=== PATIENT | male | born 1945 | race American Indian/Alaskan Native ===

== ENCOUNTER 2017-08-27 13:58 | Inpatient (IN) | payer MEDICARE ==
[2017-08-27 14:36] LABS: Basophils % (Auto) 0.7 % (0.0-1.8); Hematocrit 36.2 % (35.5-45.6); Mean Corpuscular HGB Conc 33 % (32-34); Mean Corpuscular Hemoglobin 30 pg (28-32); Mean Corpuscular Volume 90 fl (84-94); Platelet Count 279 K/mm3 (140-440); Red Blood Count 4.03 M/mm3 (3.65-5.03); Red Cell Distribution Width 14.3 % (13.2-15.2); White Blood Count 7.2 K/mm3 (4.5-11.0)
[2017-08-27 14:54] LABS: Alanine Aminotransferase 14 units/L (7-56); Albumin 3.9 g/dL (3.9-5); Albumin/Globulin Ratio 1.3 %; Alkaline Phosphatase 80 units/L (35-129); Anion Gap 17 mmol/L; BUN/Creatinine Ratio 12; Blood Urea Nitrogen 11 mg/dL (9-20); Calcium 9.2 mg/dL (8.4-10.2); Carbon Dioxide 28 mmol/L (22-30); Chloride 99.9 mmol/L (98-107); Glucose 115 mg/dL (75-100); Potassium 4.5 mmol/L (3.6-5.0); Sodium 140 mmol/L (137-145)
--- NOTE | 2017-08-27 15:27 | Emergency Department Report ---
ED General Adult HPI - General Chief complaint: Nausea/Vomiting/Diarrhea Stated complaint: N/V,DIAPHORETIC Time Seen by Provider: 08/27/17 15:18 Source: patient, EMS (ems notes not available at time of chart dictation), RN notes reviewed, old records reviewed Mode of arrival: Stretcher Limitations: No Limitations - History of Present Illness Initial comments: This is a 72-year-old male who was previously unknown to me, past medical history includes gastric cancer, hypertension, his women specialist is Dr Klein Patient brought to the hospital by EMS for near syncope and diaphoresis. This lasted for a few seconds. It has since resolved. Patient indicates no headache , neck pain, chest pain, abdominal pain, shortness of breath at this time. Patient indicates his outpatient women specialist is planning to do either a catheterization or repeat stress test, because of "blockages." No recent stress test. Patient endorses compliance with his medications. His symptoms do not radiate anywhere, they're now resolved, and they have no exacerbating or relieving factors. -: Sudden Severity scale (0 -10): 0 Consistency: now resolved Improves with: none Worsens with: none Associated Symptoms: diaphoresis, malaise, syncope, weakness. denies: confusion , chest pain, cough, fever/chills, headaches, loss of appetite, rash, seizure - Related Data Home Medications Medication Instructions Recorded Confirmed Last Taken Aspirin [Lo-Dose Aspirin EC] 81 mg PO DAILY 07/12/17 07/14/17 07/13/17 AtorvaSTATin [Lipitor] 10 mg PO QHS 07/12/17 07/14/17 07/13/17 Cholecalciferol (Vitamin D3) 50,000 unit PO QWEEK 07/12/17 07/14/17 07/13/17 [Vitamin D3] Lisinopril [Zestril] 20 mg PO DAILY 07/12/17 07/14/17 07/14/17 07:30 Metoprolol [Lopressor TAB] 50 mg PO BID 07/12/17 07/14/17 07/14/17 07:30 Allergies Allergy/AdvReac Type Severity Reaction Status Date / Time No Known Allergies Allergy Verified 07/12/17 14:18 ED Review of Systems ROS: Stated complaint: N/V,DIAPHORETIC Other details as noted in HPI ED Past Medical Hx - Past Medical History Hx Hypertension: Yes (X 5 YRS, took metoprolol) Hx GERD: Yes Hx Liver Disease: No Hx Renal Disease: No Hx Seizures: Yes (due to heat. 3-4 yrs ago) Hx Asthma: No Hx COPD: No Hx HIV: No - Surgical History Past Surgical History?: No - Social History Smoking Status: Former Smoker Substance Use Type: Alcohol, Marijuana - Medications Home Medications: Home Medications Medication Instructions Recorded Confirmed Last Taken Type Aspirin [Lo-Dose Aspirin EC] 81 mg PO DAILY 07/12/17 07/14/17 07/13/17 History AtorvaSTATin [Lipitor] 10 mg PO QHS 07/12/17 07/14/17 07/13/17 History Cholecalciferol (Vitamin D3) 50,000 unit PO QWEEK 07/12/17 07/14/17 07/13/17 History [Vitamin D3] Lisinopril [Zestril] 20 mg PO DAILY 07/12/17 07/14/17 07/14/17 07:30 History Metoprolol [Lopressor TAB] 50 mg PO BID 07/12/17 07/14/17 07/14/17 07:30 History ED Physical Exam - General Limitations: No Limitations General appearance: alert, in no apparent distress - Head Head exam: Present: atraumatic, normocephalic - Eye Eye exam: Present: normal appearance, EOMI. Absent: nystagmus - ENT ENT exam: Present: normal exam, normal orophraynx, mucous membranes moist, normal external ear exam - Neck Neck exam: Present: normal inspection, full ROM - Respiratory Respiratory exam: Present: normal lung sounds bilaterally. Absent: respiratory distress - Cardiovascular Cardiovascular Exam: Present: regular rate, normal rhythm, normal heart sounds. Absent: systolic murmur, diastolic murmur, rubs, gallop - GI/Abdominal GI/Abdominal exam: Present: soft, normal bowel sounds. Absent: distended, tenderness, guarding, rebound, rigid, pulsatile mass, hernia - Rectal Rectal exam: Present: deferred - Extremities Exam Extremities exam: Present: normal inspection, full ROM, normal capillary refill. Absent: tenderness, pedal edema, joint swelling, calf tenderness - Back Exam Back exam: Present: normal inspection, full ROM. Absent: tenderness, CVA tenderness (R), paraspinal tenderness, vertebral tenderness - Neurological Exam Neurological exam: Present: alert, oriented X3, CN II-XII intact, normal gait, other (Extraocular movements intact. Tongue midline. No facial droop. Facial sensation intact to light touch in the V1, V2, V3 distribution bilaterally. 5 and 5 strength in 4 extremities.. Sensation is intact to light touch in 4 extremities.). Absent: motor sensory deficit - Psychiatric Psychiatric exam: Present: normal affect, normal mood - Skin Skin exam: Present: warm, dry, intact, normal color. Absent: rash ED Course Vital Signs 08/27/17 08/27/17 08/27/17 14:05 14:10 14:15 Temperature 97.5 F L Pulse Rate 68 64 Respiratory 16 15 Rate Blood Pressure 108/60 114/64 101/68 Blood Pressure 114/64 [Right] O2 Sat by Pulse 100 99 Oximetry 08/27/17 08/27/17 08/27/17 14:30 14:38 14:45 Temperature 97.9 F Pulse Rate 66 71 73 Respiratory 14 12 17 Rate Blood Pressure 101/68 109/70 Blood Pressure 110/64 [Right] O2 Sat by Pulse 98 99 99 Oximetry 08/27/17 08/27/17 15:01 15:15 Temperature Pulse Rate 68 62 Respiratory 16 15 Rate Blood Pressure 100/55 100/55 Blood Pressure [Right] O2 Sat by Pulse 99 100 Oximetry - Reevaluation(s) Reevaluation #1: 08/27/17 18:51 Differential diagnosis, including but not limited to: Acute coronary syndrome, pulmonary embolus, structural cardiac disease, vagal event, orthostasis Assessment and plan: 72-year-old male, reported history of possible obstructive coronary artery disease, indicates his private women specialist is planning risk stratification and near future, low risk by well's criteria, negative CT scan of the chest for pulmonary and was, negative troponin, with episode of diaphoresis and near syncope. His symptoms have resolved, he is afebrile with reassuring vital signs, he has an unremarkable physical exam, and an unremarkable neurologic examination. Discussed with covering cardiology talent acquisition administrator , Dr. Narayanan, who recommended admission for observation and acute coronary syndrome risk stratification; case presented to Hospital physician, Dr. Coleman; he accepts the patient to the medical service. ED Medical Decision Making - Lab Data Result diagrams: 08/27/17 14:20 08/27/17 14:20 Vital Signs 08/27/17 08/27/17 08/27/17 14:05 14:10 14:15 Temperature 97.5 F L Pulse Rate 68 64 Respiratory 16 15 Rate Blood Pressure 108/60 114/64 101/68 Blood Pressure 114/64 [Right] O2 Sat by Pulse 100 99 Oximetry 08/27/17 08/27/17 08/27/17 14:30 14:38 14:45 Temperature 97.9 F Pulse Rate 66 71 73 Respiratory 14 12 17 Rate Blood Pressure 101/68 109/70 Blood Pressure 110/64 [Right] O2 Sat by Pulse 98 99 99 Oximetry 08/27/17 08/27/17 15:01 15:15 Temperature Pulse Rate 68 62 Respiratory 16 15 Rate Blood Pressure 100/55 100/55 Blood Pressure [Right] O2 Sat by Pulse 99 100 Oximetry Lab Results 08/27/17 08/27/17 08/27/17 Range/Units 14:20 14:20 15:26 WBC 7.2 (4.5-11.0) K/mm3 RBC 4.03 (3.65-5.03) M/mm3 Hgb 12.0 (11.8-15.2) gm/dl Hct 36.2 (35.5-45.6) % MCV 90 (84-94) fl MCH 30 (28-32) pg MCHC 33 (32-34) % RDW 14.3 (13.2-15.2) % Plt Count 279 (140-440) K/mm3 Lymph % (Auto) 21.8 (13.4-35.0) % Summers % (Auto) 8.4 H (0.0-7.3) % Eos % (Auto) 1.0 (0.0-4.3) % Baso % (Auto) 0.7 (0.0-1.8) % Lymph # 1.6 (1.2-5.4) K/mm3 Summers # 0.6 (0.0-0.8) K/mm3 Eos # 0.1 (0.0-0.4) K/mm3 Baso # 0.0 (0.0-0.1) K/mm3 Seg Neutrophils % 68.1 (40.0-70.0) % Seg Neutrophils # 4.9 (1.8-7.7) K/mm3 PT (12.2-14.9) Sec. INR (0.87-1.13) APTT (24.2-36.6) Sec. D-Dimer (0-234) ng/mlDDU Sodium 140 (137-145) mmol/L Potassium 4.5 (3.6-5.0) mmol/L Chloride 99.9 (98-107) mmol/L Carbon Dioxide 28 (22-30) mmol/L Anion Gap 17 mmol/L BUN 11 (9-20) mg/dL Creatinine 0.9 (0.8-1.5) mg/dL Estimated GFR > 60 ml/min BUN/Creatinine Ratio 12 % Glucose 115 H (75-100) mg/dL Calcium 9.2 (8.4-10.2) mg/dL Total Bilirubin 0.30 (0.1-1.2) mg/dL AST 15 (5-40) units/L ALT 14 (7-56) units/L Alkaline Phosphatase 80 (35-129) units/L Troponin T < 0.010 (0.00-0.029) ng/mL Total Protein 7.0 (6.3-8.2) g/dL Albumin 3.9 (3.9-5) g/dL Albumin/Globulin Ratio 1.3 % 08/27/ Range/Units 15:33 WBC (4.5-11.0) K/mm3 RBC (3.65-5.03) M/mm3 Hgb (11.8-15.2) gm/dl Hct (35.5-45.6) % MCV (84-94) fl MCH (28-32) pg MCHC (32-34) % RDW (13.2-15.2) % Plt Count (140-440) K/mm3 Lymph % (Auto) (13.4-35.0) % Summers % (Auto) (0.0-7.3) % Eos % (Auto) (0.0-4.3) % Baso % (Auto) (0.0-1.8) % Lymph # (1.2-5.4) K/mm3 Summers # (0.0-0.8) K/mm3 Eos # (0.0-0.4) K/mm3 Baso # (0.0-0.1) K/mm3 Seg Neutrophils % (40.0-70.0) % Seg Neutrophils # (1.8-7.7) K/mm3 PT 13.1 (12.2-14.9) Sec. INR 0.95 (0.87-1.13) APTT 26.1 (24.2-36.6) Sec. D-Dimer 372.35 H (0-234) ng/mlDDU Sodium (137-145) mmol/L Potassium (3.6-5.0) mmol/L Chloride (98-107) mmol/L Carbon Dioxide (22-30) mmol/L Anion Gap mmol/L BUN (9-20) mg/dL Creatinine (0.8-1.5) mg/dL Estimated GFR ml/min BUN/Creatinine Ratio % Glucose (75-100) mg/dL Calcium (8.4-10.2) mg/dL Total Bilirubin (0.1-1.2) mg/dL AST (5-40) units/L ALT (7-56) units/L Alkaline Phosphatase (35-129) units/L Troponin T (0.00-0.029) ng/mL Total Protein (6.3-8.2) g/dL Albumin (3.9-5) g/dL Albumin/Globulin Ratio % - EKG Data -: EKG Interpreted by [place] EKG shows normal: sinus rhythm Rate: normal - EKG Data When compared to previous EKG there are: previous EKG unavailable 08/27/17 18:51 Normal sinus, 60 bpm, normal axis, normal intervals, not morphologically consistent with ST elevation myocardial infarction, motion artifact, - Radiology Data Radiology results: report reviewed, image reviewed CT scan of the chest: Negative for pulmonary and was, negative for pneumonia. X-ray of the chest: Calm and negative for acute disease Critical care attestation.: If time is entered above; I have spent that time in minutes in the direct care of this critically ill patient, excluding procedure time. ED Disposition Clinical Impression: Near syncope, Diaphoresis Disposition: OP ADMIT IP TO THIS HOSP Is pt being admited?: Yes Does the pt Need Aspirin: Yes Condition: Good
[2017-08-27 16:27] LABS: INR 0.95 (0.87-1.13); Partial Thromboplastin Time 26.1 Sec. (24.2-36.6)
--- NOTE | 2017-08-27 16:42 | History and Physical Report ---
History of Present Illness Chief complaint: My chest started hurting and then i passed out History of present illness: 72 YO Male with GERD, Seizure DO, HTN presents to ED for evaluation. Pt states that he experienced pain in his chest this morning and subsequently passed out. Pt states that his pain was 8/10, sudden onset, substernal, nonradiating, not worsened with exertion, not relieved with rest, improved with nitro, associated with nausea/vomiting/diaphoresis, as well as loss of consciousness. Pt seen and evaluated in ED and found to have symptoms consistent with ACS. Cardiology team consulted in ED. Past History Past Medical History: GERD, hypertension, seizures Past Surgical History: No surgical history, Other (reviewed) Social history: , lives with family. denies: smoking, alcohol abuse, prescription drug abuse Family history: hypertension Medications and Allergies Allergies Allergy/AdvReac Type Severity Reaction Status Date / Time No Known Allergies Allergy Verified 07/12/17 14:18 Home Medications Medication Instructions Recorded Confirmed Last Taken Type Aspirin [Lo-Dose Aspirin EC] 81 mg PO DAILY 07/12/17 07/14/17 07/13/17 History AtorvaSTATin [Lipitor] 10 mg PO QHS 07/12/17 07/14/17 07/13/17 History Cholecalciferol (Vitamin D3) 50,000 unit PO QWEEK 07/12/17 07/14/17 07/13/17 History [Vitamin D3] Lisinopril [Zestril] 20 mg PO DAILY 07/12/17 07/14/17 07/14/17 07:30 History Metoprolol [Lopressor TAB] 50 mg PO BID 07/12/17 07/14/17 07/14/17 07:30 History Review of Systems Constitutional: no weight loss, no weight gain, no fever, no chills, no sweats Ears, nose, mouth and throat: no ear pain, no ear discharge, no tinnitis, no decreased hearing, no nose pain, no nasal congestion Cardiovascular: chest pain Respiratory: no cough, no cough with sputum, no excessive sputum, no hemoptysis Gastrointestinal: nausea, vomiting, no abdominal pain Genitourinary Male: no hematuria, no flank pain, no discharge, no urinary frequency Rectal: no pain, no incontinence, no bleeding Musculoskeletal: no neck stiffness, no neck pain, no shooting arm pain, no arm numbness/tingling, no low back pain Integumentary: no rash, no pruritis, no redness, no sores, no jaundice Neurological: syncope, no head injury, no transient paralysis, no paralysis, no weakness, no parathesias, no numbness, no tingling, no seizures Psychiatric: no anxiety, no memory loss, no change in sleep habits, no sleep disturbances, no insomnia, no hypersomnia, no change in appetite Endocrine: no cold intolerance, no heat intolerance, no polyphagia, no excessive thirst, no polydipsia, no polyuria Hematologic/Lymphatic: no easy bruising, no easy bleeding Allergic/Immunologic: no urticaria, no allergic rhinitis, no wheezing Exam - Constitutional Vitals: Temp Pulse Resp BP Pulse Ox 97.9 F 62 15 100/55 100 08/27/17 14:38 08/27/17 15:15 08/27/17 15:15 08/27/17 15:15 08/27/17 15:15 General appearance: Present: mild distress - EENT Eyes: Present: PERRL ENT: hearing intact, clear oral mucosa - Neck Neck: Present: supple, normal ROM - Respiratory Respiratory effort: normal Respiratory: bilateral: CTA - Cardiovascular Heart Sounds: Present: S1 & S2. Absent: rub, click - Extremities Extremities: pulses symmetrical, No edema Peripheral Pulses: within normal limits - Abdominal General gastrointestinal: Present: soft, non-tender, non-distended, normal bowel sounds Male genitourinary: Present: normal - Integumentary Integumentary: Present: clear, warm, dry - Musculoskeletal Musculoskeletal: gait normal, strength equal bilaterally - Psychiatric Psychiatric: appropriate mood/affect, intact judgment & insight - Neurologic Neurologic: CNII-XII intact, moves all extremities Results - Labs CBC & Chem 7: 08/27/17 14:20 08/27/17 14:20 Labs: Abnormal lab results 08/27/17 08/27/17 08/27/17 Range/Units 14:20 14:20 15:33 Preston % (Auto) 8.4 H (0.0-7.3) % D-Dimer 372.35 H (0-234) ng/mlDDU Glucose 115 H (75-100) mg/dL Assessment and Plan - Patient Problems (1) ACS (acute coronary syndrome) Current Visit: Yes Status: Acute Plan to address problem: Admit to telemetry, serial cardiac enzymes, ekg, cardiology consulted, morphine , nitro tabs, supplemental oxygen, aspirin, supportive care, CTA chest to assess for PE. (2) Unconscious state Current Visit: Yes Status: Acute Plan to address problem: neuro checks, Pt asymptomatic at time of exam, and no neurologic deficit. (3) HTN (hypertension) Current Visit: Yes Status: Acute Plan to address problem: monitor bp q shift, supportive care, IV hydralazine prn for systolic above 155. (4) GERD (gastroesophageal reflux disease) Current Visit: Yes Status: Acute Plan to address problem: PPI therapy (5) DVT prophylaxis Current Visit: Yes Status: Acute
[2017-08-27] MEDS ORDERED: TYLENOL PO PRN (16:44)
[2017-08-27] MEDS ORDERED: NITROSTAT SL PRN (16:44)
[2017-08-27] MEDS ORDERED: MILK OF MAGNESIA PO PRN (16:44)
[2017-08-27] MEDS ORDERED: BABY ASPIRIN PO STA (16:44)
[2017-08-27] MEDS ORDERED: PROVENTIL IH PRN (16:44)
[2017-08-27] MEDS ORDERED: DULCOLAX PR PRN (16:44)
[2017-08-27] MEDS ORDERED: BABY ASPIRIN PO ONE (16:44)
[2017-08-27] MEDS ORDERED: MORPHINE IV PRN (16:44)
[2017-08-27] MEDS ORDERED: ZOFRAN IV PRN (16:44)
[2017-08-27] MEDS ORDERED: SODIUM CHLORIDE FLUSH SYRINGE 10 ML IV PRN (16:44)
[2017-08-27] MEDS ORDERED: NACL ONE (16:49)
--- NOTE | 2017-08-27 17:28 | XRay Report ---
FINAL REPORT EXAM: XR CHEST ROUTINE 2V HISTORY: n/v diapjhoresis ? cad vs pna TECHNIQUE: PA and lateral views of the chest PRIORS: None. FINDINGS: Lines, tubes, and devices: N/A Lungs and pleura: Trachea is normal in position. Lungs are clear of infiltrate, pleural effusion, vascular congestion, or pneumothorax. Cardiomediastinal silhouette: Cardiac and mediastinal silhouettes are unremarkable. Other: Bony structures are intact. IMPRESSION: No acute cardiopulmonary process seen.
--- NOTE | 2017-08-27 18:15 | Cat Scan Report ---
FINAL REPORT EXAM: CT ANGIO CHEST HISTORY: near syncope ? pe TECHNIQUE: Enhanced CT of the chest at 2.0 mm axial intervals following a pulmonary embolism protocol. Coronal and sagittal imaging were also obtained. Coronal oblique MIP projections were obtained. Contrast: 100 ml of Omnipaque 300 given IV. PRIORS: CXR 08/27/2017 FINDINGS: There is no evidence for pulmonary embolism in the main pulmonary artery, right and left pulmonary arteries or their major distributions. However, CT does not exclude distal pulmonary emboli. Otherwise, the lung parenchyma are expanded and clear with no evidence for parenchymal nodules, infiltrates, congestion, or pleural effusion. There is no evidence for mediastinal, hilar, or axillary adenopathy. Cardiovascular structures are within normal limits. No evidence for ventricular chamber enlargement is seen. Images through the lung bases include the upper abdomen which show thinning of the pancreas. Nonobstructing calculi are present in the right kidney and focal cortical thinning in the upper pole of the left kidney is present related to scarring. An incompletely imaged 12 mm subtle hypodensity on the last image in the right kidney is probably a cyst but can be confirmed with ultrasound. Bony structures demonstrate no focal abnormalities. IMPRESSION: 1. no evidence for pulmonary embolism. Negative CT of the chest. 2. Obstructing calculi in the right kidney with a probable cyst which is not completely imaged. The latter can be confirmed with ultrasound 3. Focal cortical thinning in the upper pole left kidney
[2017-08-27] MEDS ORDERED: ASPIRIN ONE (18:32)
[2017-08-27] MEDS: PEPCID PO SCH (22:33)
[2017-08-28 05:13] VITALS: BP 117/80
--- NOTE | 2017-08-28 09:37 | Consultation ---
History of Present Illness Consult date: 08/28/17 Requesting physician: NIURKA ESCOBAR History of present illness: Patient is a 72-year-old gentleman well-known to our service. The patient has history of hypertension and remote history of coronary artery disease. Patient is followed in the clinic regularly. He apparently had a stress test that showed mild inferior abnormality and a cardiac cath was planned as an outpatient. The stress was done for routine follow-up of risk factors. He has not been experiencing any chest pain. Yesterday patient reports that he was watching TV and suddenly got up and he felt nauseous felt like throwing up and felt dizzy and lightheaded. He felt this cold chest and his epigastrium had a pressure-like sensation. He was seen in the ER with a completely negative workup. A d-dimer was mildly elevated but his CT scan was negative. CT scan did show some renal stones. Patient reports no chest pain or shortness of breath. He's been fairly active and exhibiting no ischemic symptoms. His EKG is unremarkable his cardiac enzymes are completely negative Past History Past Medical History: GERD, hypertension, seizures Past Surgical History: No surgical history, Other (reviewed) Social history: , lives with family. denies: smoking, alcohol abuse, prescription drug abuse Family history: hypertension Medications and Allergies Allergies Allergy/AdvReac Type Severity Reaction Status Date / Time No Known Allergies Allergy Verified 07/12/17 14:18 Home Medications Medication Instructions Recorded Confirmed Last Taken Type Aspirin [Lo-Dose Aspirin EC] 81 mg PO DAILY 07/12/17 07/14/17 07/13/17 History AtorvaSTATin [Lipitor] 10 mg PO QHS 07/12/17 07/14/17 07/13/17 History Cholecalciferol (Vitamin D3) 50,000 unit PO QWEEK 07/12/17 07/14/17 07/13/17 History [Vitamin D3] Lisinopril [Zestril] 20 mg PO DAILY 07/12/17 07/14/17 07/14/17 07:30 History Metoprolol [Lopressor TAB] 50 mg PO BID 07/12/17 07/14/17 07/14/17 07:30 History Active Meds: Active Medications Acetaminophen (Tylenol) 650 mg PO Q4H PRN PRN Reason: Pain MILD(1-3)/Fever >100.5/ATKINS Albuterol (Proventil) 2.5 mg IH Q4H PRN PRN Reason: Shortness Of Breath Bisacodyl (Dulcolax) 10 mg NC QDAY PRN PRN Reason: Constipation unrelieved by MOM Famotidine (Pepcid) 10 mg PO BID [id number] Last Admin: 08/27/17 22:33 Dose: 10 mg Magnesium Hydroxide (Milk Of Magnesia) 30 ml PO Q4H PRN PRN Reason: Constipation Morphine Sulfate (Morphine) 2 mg IV Q4H PRN PRN Reason: Pain, Moderate (4-6) Nitroglycerin (Nitrostat) 0.4 mg SL Q5M PRN PRN Reason: Chest Pain Ondansetron HCl (Zofran) 4 mg IV Q8H PRN PRN Reason: N/V unrelieved by Reglan Sodium Chloride (Sodium Chloride Flush Syringe 10 Ml) 10 ml IV PRN PRN PRN Reason: LINE FLUSH Review of Systems All systems: negative (as mentioned in the H&P) Physical Examination Vital Signs Temp Pulse Resp BP Pulse Ox 97.5 F L 76 18 114/64 96 08/27/17 14:05 08/27/17 14:05 08/27/17 14:05 08/27/17 14:05 08/27/17 14:05 Narrative exam: Vitals reviewed GEN: No acute distress noted HEENT: Carotids 2+ NECK: Supple CVS: S1 and S2 heard no significant murmur or gallop noted LUNGS/CHEST: Normal auscultation ABD: Soft nontender Extremities: No edema noted normal color NEURO: Alert moves all all 4 extremities PSY: Stable Results 08/27/17 14:20 08/27/17 14:20 Cardiac Enzymes 08/27/17 Range/Units 14:20 AST 15 (5-40) units/L Coagulation 08/27/17 Range/Units 15:33 PT 13.1 (12.2-14.9) Sec. INR 0.95 (0.87-1.13) APTT 26.1 (24.2-36.6) Sec. CBC 08/27/17 Range/Units 14:20 WBC 7.2 (4.5-11.0) K/mm3 RBC 4.03 (3.65-5.03) M/mm3 Hgb 12.0 (11.8-15.2) gm/dl Hct 36.2 (35.5-45.6) % Plt Count 279 (140-440) K/mm3 Lymph # 1.6 (1.2-5.4) K/mm3 Dickenson # 0.6 (0.0-0.8) K/mm3 Eos # 0.1 (0.0-0.4) K/mm3 Baso # 0.0 (0.0-0.1) K/mm3 Comprehensive Metabolic Panel 08/27/17 Range/Units 14:20 Sodium 140 (137-145) mmol/L Potassium 4.5 (3.6-5.0) mmol/L Chloride 99.9 (98-107) mmol/L Carbon Dioxide 28 (22-30) mmol/L BUN 11 (9-20) mg/dL Creatinine 0.9 (0.8-1.5) mg/dL Glucose 115 H (75-100) mg/dL Calcium 9.2 (8.4-10.2) mg/dL AST 15 (5-40) units/L ALT 14 (7-56) units/L Alkaline Phosphatase 80 (35-129) units/L Total Protein 7.0 (6.3-8.2) g/dL Albumin 3.9 (3.9-5) g/dL EKG interpretations - Telemetry EKG Rhythm: Sinus Rhythm Assessment and Plan 1. Syncope appears vasovagal in nature. Given the associated nausea or diaphoresis lightheadedness and epigastric tightness. 2. Chest pain highly atypical negative EKG and negative cardiac enzymes so far 3. Remote history of coronary artery disease but no prior stents or surgery. 4. Apparently mildly positive stress test scheduled for an elective Plan In short this is a 72-year-old with history of seizures hypertension and questionable history of remote CAD who presents with what appears like a vasovagal syncope. So far his workup is completely negative. Patient is asymptomatic. Exam is unremarkable. Patient is ambulating without any difficulty. No arrhythmias noted on the monitor. This being [facility] and Not Being Open until Tuesday, I Don't See Any concerning Factors to Keep Him in the Hospital. No Reason for an Emergency Cardiac Cath This Patient Is Completely Asymptomatic. At This Point Patient Can Be Discharged Home with Careful Follow-Up As an Outpatient. Patient Is Not to Exert Himself Not to Drink Alcohol and Report to the ER If Symptoms Return or He Has Any Chest Pain. I Have Spoken to the Patient at Length and He Understands the Risks Involved and Is Wanting to Go Home. Patient Can Be Discharged Home from Cardiac Standpoint
[2017-08-28] MEDS: PEPCID PO SCH (11:05)
--- NOTE | 2017-08-28 11:39 | Discharge Summary ---
Providers - Providers Date of Admission: 08/27/17 16:44 Attending physician: MEAGHAN MCNALLY MD 08/27/17 Consult to Cardiac Rehabilitation [CONS] Routine Reason For Exam: Phase I 08/27/17 16:43 Consult to Physician [CONS] Urgent Consulting Provider: EMILY ENGLAND Reason For Exam: diaphoresis near syncope Notified:: yes Primary care physician: MAGALY JORGE Hospitalization Reason for admission: syncope Condition: Good Hospital course: 72 YO Male with GERD, Seizure DO, HTN presents to ED for evaluation. Pt states that he experienced pain in his chest this morning and subsequently passed out. Pt states that his pain was 8/10, sudden onset, substernal, nonradiating, not worsened with exertion, not relieved with rest, improved with nitro, associated with nausea/vomiting/diaphoresis, as well as loss of consciousness. Pt seen and evaluated in ED and found to have symptoms consistent with ACS. Cardiology team consulted in ED. patient is well-known to cardiology service and for that reason cardiology was consulted and their evaluation. Believe that the patient had a vasovagal syncopal episode which has not resolved and this is based on the fiber patient had some associated nausea with diaphoresis and lightheadedness prior to this. Workup for cardiac etiology was negative. We did advise the patient to follow up outpatient with cardiology for stress test and also to avoid any exertion or alcohol prior to dose. The patient verbalized understand them. No further abnormality was documented. 1. Autonomic disbalance with syncope 2. Atypical chest pain secondary to costochondritis 3. Remote history of coronary artery disease but no prior stents or surgery. 4. Hypertension 5. GERD Disposition: - TO HOME OR SELFCARE Time spent for discharge: 35 MINS Core Measure Documentation - Palliative Care Palliative Care/ Comfort Measures: Not Applicable - Core Measures Any of the following diagnoses?: none - VTE Discharge Requirements Deep Vein Thrombosis/Pulmonary Embolism Present on Admission: No Exam - Physical Exam Narrative exam: VITAL SIGNS: Reviewed. GENERAL: The patient appeared well nourished and normally developed. Vital signs as documented. HEAD: No signs of head trauma. EYES: Pupils are equal. Extraocular motions intact. EARS: Hearing grossly intact. MOUTH: Oropharynx is normal. NECK: No adenopathy, no JVD. CHEST: Chest with clear breath sounds bilaterally. No wheezes, rales, or rhonchi. CARDIAC: Regular rate and rhythm. S1 and S2, without murmurs, gallops, or rubs. VASCULAR: No Edema. Peripheral pulses normal and equal in all extremities. ABDOMEN: Soft, without detectable tenderness. No sign of distention. No rebound or guarding, and no masses palpated. Bowel Sounds normal. MUSCULOSKELETAL: Good range of motion of all major joints. Extremities without clubbing, cyanosis or edema. NEUROLOGIC EXAM: Alert and oriented x 3. No focal sensory or strength deficits. Speech normal. Follows commands. PSYCHIATRIC: Mood normal. SKIN: No rash or lesions. - Constitutional Vitals: Temp Pulse Resp BP Pulse Ox 97.7 F 76 20 117/80 99 08/28/17 04:41 08/28/17 07:57 08/28/17 04:41 08/28/17 04:41 08/28/17 09:55 Plan Activity: advance as tolerated (Patient Is Not to Exert Himself Not to Drink Alcohol and Report to the ER If Symptoms Return or He Has Any Chest Pain), fall precautions Diet: low cholesterol, low salt Special Instructions: record daily BP diary Additional Instructions: Follow with cardiology for stress test. No exertion till stress test done. Follow up with: MAGALY JORGE MD [Primary Care Provider] - 3-5 Days EMILY ENGLAND MD [Staff Physician] - 7 Days Prescriptions: Famotidine [Pepcid] 10 mg PO BID #60 tablet Tamsulosin HCl [Flomax] 0.4 mg PO DAILY #10 cap.er.24h
== END 2017-08-28 12:51 | disposition home or self-care (01) | DRG 206 ==
LOC: ED 13:58 → 4A 16:44
PROVIDERS: ADMIT Internal Medicine; ATTEND Internal Medicine
DX: M94.0 Chondrocostal junction syndrome [Tietze] (principal); R55 Syncope and collapse; I10 Essential (primary) hypertension; Z85.028 Personal history of other malignant neoplasm of stomach; Z79.82 Long term (current) use of aspirin; Z79.899 Other long term (current) drug therapy; K21.9 Gastro-esophageal reflux disease without esophagitis; Z87.891 Personal history of nicotine dependence; G40.909 Epilepsy, unspecified, not intractable, without status epilepticus; Z82.49 Family history of ischemic heart disease and other diseases of the circulatory system; I25.10 Atherosclerotic heart disease of native coronary artery without angina pectoris; R07.89 Other chest pain
CPT/HCPCS: 36415; 71020; 71275; 80053; 84484; 85025; 85379; 85610; 85730; 93005; 93010; Q9967

== ENCOUNTER 2017-09-12 06:25 | Observation (INO) | payer MEDICARE ==
[2017-09-12] MEDS ORDERED: NACL 0.9% 500 ML 500 ML IV SCH (07:00)
[2017-09-12 07:27] LABS: Basophils % (Auto) 0.4 % (0.0-1.8); Eosinophils # (Auto) 0.1 K/mm3 (0.0-0.4); Eosinophils % (Auto) 1.9 % (0.0-4.3); Hematocrit 38.1 % (35.5-45.6); Hemoglobin 12.2 gm/dl (11.8-15.2); Lymphocytes # (Auto) 1.3 K/mm3 (1.2-5.4); Lymphocytes % (Auto) 23.2 % (13.4-35.0); Mean Corpuscular HGB Conc 32 % (32-34); Mean Corpuscular Hemoglobin 29 pg (28-32); Mean Corpuscular Volume 90 fl (84-94); Monocytes # (Auto) 0.6 K/mm3 (0.0-0.8); Monocytes % (Auto) 9.9 % (0.0-7.3); Platelet Count 300 K/mm3 (140-440); Red Blood Count 4.26 M/mm3 (3.65-5.03); Red Cell Distribution Width 13.9 % (13.2-15.2)
[2017-09-12 07:32] LABS: INR 0.89 (0.87-1.13)
[2017-09-12 07:38] LABS: BUN/Creatinine Ratio 18; Blood Urea Nitrogen 16 mg/dL (9-20); Calcium 9.3 mg/dL (8.4-10.2); Hemolysis Index 1
[2017-09-12] MEDS ORDERED: HEPARIN/NS 5000 UNIT/500ML(CATH LAB) 500 ML IR ONE (09:08)
[2017-09-12] MEDS ORDERED: XYLOCAINE 2% INFILTRATI ONE (09:09)
[2017-09-12] MEDS: NITROGLYCERIN SYRINGE 3 ML ONE ×2 (10:08→10:25)
[2017-09-12] MEDS: CALAN ONE ×2 (10:08→10:25)
[2017-09-12] MEDS: HEPARIN 10,000 UNITS/10 ML ONE ×4 (10:09→10:54)
[2017-09-12] MEDS: VERSED ONE ×3 (10:11→10:49)
[2017-09-12] MEDS: SUBLIMAZE ONE ×2 (10:25→10:47)
[2017-09-12] MEDS ORDERED: NITROGLYCERIN SYRINGE 3 ML ONE (10:57)
[2017-09-12] MEDS ORDERED: PLAVIX ONE (10:59)
[2017-09-12] MEDS ORDERED: ALUM-MAG HYDROX-SIMETH 200-200-20MG/5ML ONE (10:59)
[2017-09-12] MEDS ORDERED: HEPARIN 10,000 UNITS/10 ML ONE (11:18)
[2017-09-12] MEDS ORDERED: ULTRAM PO PRN (11:32)
[2017-09-12] MEDS ORDERED: ZOFRAN IV PRN (11:32)
[2017-09-12] MEDS ORDERED: AMBIEN PO PRN (11:39)
--- NOTE | 2017-09-12 11:48 | Event Note ---
Date: 09/12/17 Outpatient cardiac cath done with successful adhoc PCI of the RCA. Serial 2.5-3.0mm DE stents deployed-excellent result, no complications. Admit for overnight post PCI observation. Discharge am-add Imdur and Plavix to home meds on discharge.
[2017-09-12] MEDS ORDERED: NACL 0.9% 1000 ML 1,000 ML IV SCH (13:00)
--- NOTE | 2017-09-12 14:48 | Cardiac Catherization Report ---
CARDIAC CATHETERIZATION AND CORONARY ANGIOPLASTY REPORT REASON FOR PROCEDURE: Chest pain and abnormal thallium stress test. PROCEDURES PERFORMED: 1. Left heart catheterization. 2. Selective left and right coronary angiography. 3. Coronary angioplasty and stenting of the right coronary artery. The patient was prepped and draped in a sterile fashion after informed consent. The right radial cath site was prepped and draped after a negative Benjamin's test. The right radial artery was entered using Seldinger technique followed by placement of a 6-Turkish hydrophilic sheath. Routine radial cocktail was administered via the sheath. Selective left and right coronary angiography was performed using #3.5 left Seema and #4 right Seema catheters. The angiograms were then reviewed. CORONARY ANGIOGRAPHY: There was moderate diffuse calcification, chiefly involving the left coronary system. The left main coronary artery contained mild irregularities. The left anterior descending artery and its diagonal branches contained diffuse mild atherosclerosis. The circumflex artery and its obtuse marginal branches contained diffuse moderate severity atherosclerosis. The right coronary artery was dominant. This vessel contained a focal, 75% stenosis of the mid segment. Following that, there was another 90% stenosis located at the acute margin. Following that, a third, focal 80% stenosis was noted in the distal AV groove, midway between the acute margin and the right posterior descending branch. CORONARY ANGIOPLASTY: After review of the angiograms, ad hoc coronary angioplasty of the right coronary artery was recommended. We exchanged for #1 right Amplatz guiding catheter and advanced, successfully cannulating the right coronary artery. A 0.014 inch Line Construction Superintendent 50 guidewire was then introduced into the vessel, successfully across all three focal stenosis. Beginning with the most distal vessel, we deployed a 2.5 x 8 mm drug-eluting stent to that lesion. Following that, a 2.75 x 12 mm drug-eluting stent was deployed to the lesion located at the acute margin. Finally, a 3.0 x 8 mm drug-eluting stent was deployed to the mid lesion. Primary stenting maneuver was used at all 3 locations. Following spot stenting as described, there was an excellent angiographic result at the treated sites, no residual stenosis and SANTOS 3 flow was maintained down the vessel. Procedure was well tolerated by the patient and there were no complications. The catheters were removed, sheath removed, and hemostasis achieved using manual compression. The patient was returned to the postprocedure unit in stable condition. There were no complications. CONCLUSION: 1. Cardiac catheterization revealed severe focal coronary lesions of the mid and distal right coronary artery. 2. Successful ad hoc angioplasty and stenting with successful 2.5 to 3.0 mm serial stents deployed in the mid and distal RCA. 3. Echocardiography will be recommended for left ventricular function and valvular function assessment. JOB# [id number] SUPRIYA/NTS
[2017-09-12] MEDS: IMDUR PO SCH (19:26)
[2017-09-12] MEDS: PEPCID PO SCH (22:15)
[2017-09-13 06:29] LABS: Basophils % (Auto) 0.4 % (0.0-1.8); Eosinophils # (Auto) 0.1 K/mm3 (0.0-0.4); Eosinophils % (Auto) 2.1 % (0.0-4.3); Hematocrit 35.6 % (35.5-45.6); Hemoglobin 11.5 gm/dl (11.8-15.2); Lymphocytes # (Auto) 1.5 K/mm3 (1.2-5.4); Lymphocytes % (Auto) 27.3 % (13.4-35.0); Mean Corpuscular HGB Conc 32 % (32-34); Mean Corpuscular Hemoglobin 29 pg (28-32); Mean Corpuscular Volume 89 fl (84-94); Monocytes # (Auto) 0.7 K/mm3 (0.0-0.8); Monocytes % (Auto) 11.6 % (0.0-7.3); Platelet Count 255 K/mm3 (140-440); Red Cell Distribution Width 13.9 % (13.2-15.2)
[2017-09-13 06:50] LABS: Creatine Kinase MB 2.3 ng/mL (0.0-4.0)
[2017-09-13 06:51] LABS: BUN/Creatinine Ratio 14; Blood Urea Nitrogen 14 mg/dL (9-20); Calcium 8.8 mg/dL (8.4-10.2); Hemolysis Index 11
--- NOTE | 2017-09-13 08:11 | XRay Report ---
AP CHEST :09/13/17 07:37 CLINICAL: Status post PCI COMPARISON:08/27/17 FINDINGS: Normal heart and pulmonary vasculature. The lungs are normally expanded and clear. The bones and soft tissues are normal.No tubes or lines. IMPRESSION: Normal chest.
[2017-09-13] MEDS: PEPCID PO SCH (09:36)
[2017-09-13] MEDS: IMDUR PO SCH (09:37)
[2017-09-13] MEDS ORDERED: ZESTRIL PO SCH (10:00)
[2017-09-13] MEDS ORDERED: ECOTRIN PO SCH (10:00)
[2017-09-13] MEDS ORDERED: TOPROL XL PO SCH (10:00)
[2017-09-13] MEDS ORDERED: FLOMAX PO SCH (10:00)
[2017-09-13] MEDS ORDERED: PLAVIX PO SCH (10:00)
[2017-09-13 12:56] VITALS: BP 102/62
--- NOTE | 2017-09-13 14:10 | Short Stay Summary ---
Short Stay Documentation Date of service: 09/13/17 - History H&P: obtained from office - Allergies and Medications Current Medications: Allergies No Known Allergies Allergy (Verified 07/12/17 14:18) Home Medications Medication Instructions Recorded Confirmed Last Taken Type Aspirin [Lo-Dose Aspirin EC] 81 mg PO DAILY 07/12/17 09/12/17 09/08/17 History AtorvaSTATin [Lipitor] 10 mg PO QHS 07/12/17 09/12/17 09/11/17 History Cholecalciferol (Vitamin D3) 50,000 unit PO QWEEK 07/12/17 09/12/17 09/06/17 History [Vitamin D3] Lisinopril [Zestril] 20 mg PO DAILY 07/12/17 09/12/17 09/12/17 05:30 History Metoprolol [Lopressor TAB] 25 mg PO QDAY 07/12/17 09/12/17 09/12/17 05:30 History Famotidine [Pepcid] 10 mg PO BID #60 tablet 08/28/17 09/12/17 09/10/17 Rx Tamsulosin HCl [Flomax] 0.4 mg PO DAILY #10 cap.er.24h 08/28/17 09/12/17 Rx Aspirin EC [Aspirin Enteric Coated 325 mg PO QDAY 09/12/17 09/12/17 09/12/17 05: 30 History TAB] Active Medications Aspirin (Ecotrin) 325 mg PO QDAY [facility] Last Admin: 09/13/17 09:37 Dose: 325 mg Atorvastatin Calcium (Lipitor) 10 mg PO QHS [facility] Last Admin: 09/12/17 22:15 Dose: 10 mg Clopidogrel Bisulfate (Plavix) 75 mg PO QDAY [facility] Last Admin: 09/13/17 09:36 Dose: 75 mg Famotidine (Pepcid) 10 mg PO BID [facility] Last Admin: 09/13/17 09:36 Dose: 10 mg Isosorbide Mononitrate (Imdur) 30 mg PO QDAY [facility] Last Admin: 09/13/17 09:37 Dose: 30 mg Lisinopril (Zestril) 20 mg PO DAILY [facility] Last Admin: 09/13/17 09:37 Dose: 20 mg Metoprolol Succinate (Toprol Xl) 25 mg PO QDAY [facility] Last Admin: 09/13/17 09:37 Dose: 25 mg Ondansetron HCl (Zofran) 4 mg IV Q8H PRN PRN Reason: N/V unrelieved by Reglan Tamsulosin HCl (Flomax) 0.4 mg PO DAILY [facility] Last Admin: 09/13/17 09:36 Dose: 0.4 mg Tramadol HCl (Ultram) 50 mg PO Q4H PRN PRN Reason: Pain, Mild (1-3) Zolpidem Tartrate (Ambien) 5 mg PO QHS PRN PRN Reason: Sleep - Physical exam General appearance: no acute distress HEENT: PERRLA Lungs: Clear to auscultation Heart: Regular rate, Normal S1, Normal S2 - Brief post op/procedure progress note Procedure: Outpatient cardiac cath done with successful adhoc PCI of the RCA. Serial 2.5-3.0mm DE stents deployed. Condition: stable - Hospital course Hospital course: Stable overnight observation. - Disposition Condition at discharge: Good Disposition: DC-01 TO HOME OR SELFCARE Short Stay Discharge Plan Activity: advance as tolerated Diet: low fat, low cholesterol, low salt Follow up with: RADHA VEGA DO [Primary Care Provider] - 7 Days ODALYS MIRANDA MD [Staff Physician] - 7 Days [facility] Inst[facility] Prescriptions: Clopidogrel [Plavix] 75 mg PO QDAY #30 tablet ISOSORBIDE MONOnitrate [Imdur ER] 30 mg PO QDAY #30 tablet
== END 2017-09-13 15:00 | disposition home or self-care (01) ==
LOC: CATHLABREC 06:25 → 4A 11:32
PROVIDERS: ADMIT Internal Medicine Cardiovascular Disease; ATTEND Internal Medicine Cardiovascular Disease
DX: I25.110 Atherosclerotic heart disease of native coronary artery with unstable angina pectoris (principal); R94.39 Abnormal result of other cardiovascular function study; I49.1 Atrial premature depolarization; E78.5 Hyperlipidemia, unspecified; I10 Essential (primary) hypertension; D00.2 Carcinoma in situ of stomach; K21.9 Gastro-esophageal reflux disease without esophagitis
CPT/HCPCS: 36415; 71045; 80048; 82550; 82553; 84484; 85025; 85347; 85610; 85730; 93005; 93010; 93454; A9270; C1769; C1874; C1887; C1894; C9600; G0378; J1644; J2250; J3010; J7040; 92928; Q9967

== ENCOUNTER 2018-03-05 13:37 | Emergency (ER) | payer MEDICARE ==
[2018-03-05 13:47] VITALS: BP 137/73
[2018-03-05] MEDS ORDERED: NORCO 5/325 PO ONE ×2 (15:05→17:04)
[2018-03-05 15:37] LABS: Bilirubin,Urine NEG (Negative); Blood,Urine LG (Negative); Color,Urine Yellow (Yellow); Mucus,Urine FEW /HPF; Protein,Urine <15 mg/dL mg/dL (Negative); Urobilinogen,Urine < 2.0 mg/dL (<2.0); WBC,Urine < 1.0 /HPF (0.0-6.0)
--- NOTE | 2018-03-05 15:49 | XRay Report ---
FINAL REPORT PROCEDURE: XR HIP 2-3V LT TECHNIQUE: LEFT hip radiographs, 2 views each, including AP view of the pelvis. HISTORY: left sided hip pain COMPARISON: No prior studies are available for comparison. FINDINGS: No acute fracture is visible. There are severe bilateral hip joint osteoarthritic changes. There is bilateral subarticular cyst formation in the femoral heads and acetabula. No joint dislocation. IMPRESSION: No acute fracture is visible. If there has been acute trauma and significant symptoms, follow-up could be obtained to exclude occult fracture
--- NOTE | 2018-03-05 16:24 | Emergency Department Report ---
ED Extremity Problem HPI - General Chief complaint: Extremity Problem,Nontraumatic Stated complaint: l leg & groin pain Time Seen by Provider: 03/05/18 14:45 Source: patient Mode of arrival: Wheelchair Limitations: No Limitations - History of Present Illness Initial comments: 72-year-old male past medical history hypertension, arthritis, history of kidney stones, GERD on Plavix for history of presents with complaint presents with complaint of acute on chronic left groin/hip pain. Patient denies any recent trauma or recent falls inciting pain in his left hip or groin. Denies any testicular pain and any testicular swelling genitourinary rash rectal pain nausea vomiting associated flank pain. Patient is ambulatory but limping due to pain in his left groin region. States that this week he was working a little more than usual and may have strained his groin. Denies any difficulty urinating or defecating. Denies any left lower extremity paresthesias. Patient is awake alert and oriented 3 not toxic appearing. Accompanied by at bedside. MD Complaint: extremity pain Onset/Timin -: days(s) Location: left, lower extremity -: Yes arthralgia Radiation: none Severity scale (0 -10): 8 Quality: aching Consistency: constant Worsens with: weight bearing, walking, exertion Associated Symptoms: denies other symptoms - Related Data Home Medications Medication Instructions Recorded Confirmed Last Taken Aspirin [Lo-Dose Aspirin EC] 81 mg PO DAILY 07/12/17 09/12/17 09/08/17 AtorvaSTATin [Lipitor] 10 mg PO QHS 07/12/17 09/12/17 09/11/17 Cholecalciferol (Vitamin D3) 50,000 unit PO QWEEK 07/12/17 09/12/17 09/06/17 [Vitamin D3] Lisinopril [Zestril] 20 mg PO DAILY 07/12/17 09/12/17 09/12/17 05:30 Metoprolol [Lopressor TAB] 25 mg PO QDAY 07/12/17 09/12/17 09/12/17 05:30 Aspirin EC [Aspirin Enteric Coated 325 mg PO QDAY 09/12/17 09/12/17 09/12/17 05: 30 TAB] Previous Rx's Medication Instructions Recorded Last Taken Type Famotidine [Pepcid] 10 mg PO BID #60 tablet 08/28/17 09/10/17 Rx Tamsulosin HCl [Flomax] 0.4 mg PO DAILY #10 cap.er.24h 08/28/17 09/11/17 Rx Clopidogrel [Plavix] 75 mg PO QDAY #30 tablet 09/13/17 Unknown Rx ISOSORBIDE MONOnitrate [Imdur ER] 30 mg PO QDAY #30 tablet 09/13/17 Unknown Rx Acetaminophen [Acetaminophen TAB] 500 mg PO Q6HR PRN #20 tablet 03/05/18 Unknown Rx HYDROcodone/ACETAMINOPHEN [[place] 1 each PO Q8H PRN #5 tablet 03/05/18 Unknown Rx 5-325 Tablet] Allergies Allergy/AdvReac Type Severity Reaction Status Date / Time No Known Allergies Allergy Verified 07/12/17 14:18 ED Review of Systems ROS: Stated complaint: l leg & groin pain Other details as noted in HPI Constitutional: denies: chills, fever Eyes: denies: eye pain, eye discharge, vision change ENT: denies: ear pain, throat pain Respiratory: denies: cough, shortness of breath, wheezing Cardiovascular: denies: chest pain, palpitations Endocrine: no symptoms reported Gastrointestinal: denies: abdominal pain, nausea, diarrhea Genitourinary: denies: urgency, dysuria Musculoskeletal: denies: back pain, joint swelling, arthralgia Skin: as per HPI (chronic pain and left inner hip region for more than 20 years) . denies: rash, lesions Neurological: denies: headache, weakness, paresthesias Psychiatric: denies: anxiety, depression Hematological/Lymphatic: denies: easy bleeding, easy bruising ED Past Medical Hx - Past Medical History Hx Hypertension: Yes (10yrs ago) Hx Heart Attack/AMI: No Hx Congestive Heart Failure: No Hx Diabetes: No Hx GERD: Yes Hx Liver Disease: No Hx Renal Disease: No Hx Arthritis: Yes (spine) Hx Seizures: Yes (08/27/17) Hx Kidney Stones: Yes (08/2017) Hx Asthma: No Hx COPD: No Hx HIV: No - Surgical History Hx Coronary Stent: No Hx Pacemaker: No - Social History Smoking Status: Never Smoker Substance Use Type: None - Medications Home Medications: Home Medications Medication Instructions Recorded Confirmed Last Taken Type Aspirin [Lo-Dose Aspirin EC] 81 mg PO DAILY 07/12/17 09/12/17 09/08/17 History AtorvaSTATin [Lipitor] 10 mg PO QHS 07/12/17 09/12/17 09/11/17 History Cholecalciferol (Vitamin D3) 50,000 unit PO QWEEK 07/12/17 09/12/17 09/06/17 History [Vitamin D3] Lisinopril [Zestril] 20 mg PO DAILY 07/12/17 09/12/17 09/12/17 05:30 History Metoprolol [Lopressor TAB] 25 mg PO QDAY 07/12/17 09/12/17 09/12/17 05:30 History Famotidine [Pepcid] 10 mg PO BID #60 tablet 08/28/17 09/12/17 09/10/17 Rx Tamsulosin HCl [Flomax] 0.4 mg PO DAILY #10 cap.er.24h 08/28/17 09/12/17 Rx Aspirin EC [Aspirin Enteric Coated 325 mg PO QDAY 09/12/17 09/12/17 09/12/17 05: 30 History TAB] Clopidogrel [Plavix] 75 mg PO QDAY #30 tablet 09/13/17 Unknown Rx ISOSORBIDE MONOnitrate [Imdur ER] 30 mg PO QDAY #30 tablet 09/13/17 Unknown Rx Acetaminophen [Acetaminophen TAB] 500 mg PO Q6HR PRN #20 tablet 03/05/18 Unknown Rx HYDROcodone/ACETAMINOPHEN [[place] 1 each PO Q8H PRN #5 tablet 03/05/18 Unknown Rx 5-325 Tablet] ED Physical Exam - General Limitations: No Limitations General appearance: alert, in no apparent distress - Head Head exam: Present: atraumatic, normocephalic - Eye Eye exam: Present: normal appearance, PERRL, EOMI - ENT ENT exam: Present: mucous membranes moist - Neck Neck exam: Present: normal inspection - Respiratory Respiratory exam: Present: normal lung sounds bilaterally. Absent: respiratory distress - Cardiovascular Cardiovascular Exam: Present: regular rate, normal rhythm. Absent: systolic murmur, diastolic murmur, rubs, gallop - GI/Abdominal GI/Abdominal exam: Present: soft (abdomen soft nontender nondistended no obvious hernias on exam), normal bowel sounds - Rectal Rectal exam: Present: deferred - exam: Present: normal inspection (no external from moral or inguinal hernias on inspection of the groin. No overt testicular swelling. No signs of infection no crepitus and groin or perineum on palpation no visible cellulitis or abscesses.) External exam: Present: normal external exam - Extremities Exam Extremities exam: Present: normal inspection - Expanded Lower Extremity Exam Left Hip exam: Present: normal inspection (no signs of hernias or external skin infections on inspection of left groin/inguinal region/left hip), full ROM (hip flexion and extension and internal rotation clinically intact) Upper Leg exam: Present: normal inspection, full ROM Knee exam: Present: normal inspection, full ROM Lower Leg exam: Present: normal inspection, full ROM Ankle exam: Present: normal inspection, full ROM Foot/Toe exam: Present: normal inspection, full ROM Neuro vascular tendon exam: Present: no vascular compromise (distal dorsalis pedis and posterior tibial pulses strong to palpation) Gait: Positive: antalgic 1 - pt complains of slight pain and inguinal groin area here on the left with deep palpation - Back Exam Back exam: Present: normal inspection - Neurological Exam Neurological exam: Present: alert, oriented X3, CN II-XII intact, abnormal gait - Psychiatric Psychiatric exam: Present: normal affect, normal mood - Skin Skin exam: Present: warm, dry, intact, normal color. Absent: rash ED Course Vital Signs 03/05/18 13:44 Temperature 98.2 F Pulse Rate 87 Respiratory 16 Rate Blood Pressure 137/73 O2 Sat by Pulse 100 Oximetry ED Medical Decision Making - Medical Decision Making A/P: Left groin strain, chronic left hip pain 1- urinalysis unremarkable, discussed with Dr. Kumari 2- bedside Doppler applied. Patient has good distal pulses good dorsalis pedis posterior tibial left inguinal femoral pulse and popliteal pulse. There is no significant swelling of extremity no clinical signs of infection on exam. Motion is clinically intact the left hip. patient is afebrile 3- Pt is able to ambulate with assistance of a walker 4- no leg or calf swelling suggestive of DVT at this time. Patient states he has had these symptoms ongoing for more than 20 years but may have strained the muscles of his left-sided groin today. As there are no other overt abnormalities on physical exam it is reasonable to give patient analgesia and have him follow-up with orthopedics. Critical care attestation.: If time is entered above; I have spent that time in minutes in the direct care of this critically ill patient, excluding procedure time. ED Disposition Clinical Impression: Strain of left inguinal muscle Qualifiers: Encounter type: initial encounter Qualified Code(s): S39.013A - Strain of muscle, fascia and tendon of pelvis, initial encounter Disposition: TO HOME OR SELFCARE Is pt being admited?: No Does the pt Need Aspirin: No Condition: Stable Instructions: Groin Strain (ED), Groin Pain (ED) Prescriptions: Acetaminophen [Acetaminophen TAB] 500 mg PO Q6HR PRN #20 tablet PRN Reason: Pain , Severe (7-10) HYDROcodone/ACETAMINOPHEN [[place] 5-325 Tablet] 1 each PO Q8H PRN #5 tablet PRN Reason: Pain , Severe (7-10) Referrals: RADHA VEGA DO [Primary Care Provider] - 3-5 Days CLAUDIA CROW MD [Staff Physician] - 3-5 Days Forms: Accompanied Note Time of Disposition: 17:33
[2018-03-05] MEDS ORDERED: MOTRIN PO ONE (17:05)
== END 2018-03-05 17:52 | disposition home or self-care (01) ==
LOC: ED 13:37
DX: S39.013A Strain of muscle, fascia and tendon of pelvis, initial encounter (principal); I10 Essential (primary) hypertension; K21.9 Gastro-esophageal reflux disease without esophagitis; Z87.442 Personal history of urinary calculi; Z79.01 Long term (current) use of anticoagulants; Z79.82 Long term (current) use of aspirin; X58.XXXA Exposure to other specified factors, initial encounter; Y93.89 Activity, other specified; Y92.89 Other specified places as the place of occurrence of the external cause; Y99.8 Other external cause status
CPT/HCPCS: 81001; 99284

== ENCOUNTER 2020-08-18 22:53 | Inpatient (IN) | payer MEDICARE, OTHER ==
[2020-08-19 01:40] LABS: Hematocrit 33.9 % (35.5-45.6); Hemoglobin 11.4 gm/dl (11.8-15.2); Mean Corpuscular HGB Conc 34 % (32-34); Mean Corpuscular Volume 100 fl (84-94); Platelet Count 268 K/mm3 (140-440); Red Blood Count 3.38 M/mm3 (3.65-5.03); Red Cell Distribution Width 16.9 % (13.2-15.2)
[2020-08-19 01:49] LABS: Alanine Aminotransferase 19 units/L (7-56); Albumin 4.3 g/dL (3.9-5); BUN/Creatinine Ratio 17; Blood Urea Nitrogen 26 mg/dL (9-20); Calcium 9.7 mg/dL (8.4-10.2); Hemolysis Index 7
[2020-08-19] MEDS ORDERED: INSULIN REGULAR, HUMAN 100 UNIT/ML 3ML VIAL IV ONE (02:32)
[2020-08-19] MEDS ORDERED: SODIUM CHLORIDE 0.9% 1000 ML 1,000 ML IV ONE (02:32)
--- NOTE | 2020-08-19 02:36 | Emergency Department Report ---
ED General Adult HPI - General Chief complaint: Hyperglycemia Stated complaint: HIGH GLUCOSE Time Seen by Provider: 08/19/20 02:26 Source: patient Mode of arrival: Ambulatory Limitations: No Limitations - History of Present Illness Initial comments: Patient is 75-year-old male with history of pancreatic cancer on chemotherapy now. Patient presented to the ER after he received a call from his doctor stating that his blood sugar was high. Patient found to have a blood sugar of 706. Patient is complaining of generalized weakness. Patient denied any nausea or vomiting. No fever or chills. Patient also denied any abdominal pain or diarrhea. No chest pain or shortness of breath. - Related Data Home Medications Medication Instructions Recorded Confirmed Last Taken Aspirin [Lo-Dose Aspirin EC] 81 mg PO DAILY 07/12/17 09/12/17 09/08/17 AtorvaSTATin 10 mg PO QHS 07/12/17 09/12/17 09/11/17 Cholecalciferol (Vitamin D3) 50,000 unit PO QWEEK 07/12/17 09/12/17 09/06/17 [Vitamin D3 50,000UNIT CAP] Lisinopril [Zestril] 20 mg PO DAILY 07/12/17 09/12/17 09/12/17 05:30 Metoprolol [Lopressor TAB] 25 mg PO QDAY 07/12/17 09/12/17 09/12/17 05:30 Aspirin EC [Ecotrin] 325 mg PO QDAY 09/12/17 09/12/17 09/12/17 05:30 Previous Rx's Medication Instructions Recorded Last Taken Type Famotidine [Pepcid] 10 mg PO BID #60 tablet 08/28/17 09/10/17 Rx Tamsulosin HCl [Flomax] 0.4 mg PO DAILY #10 cap.er.24h 08/28/17 09/11/17 Rx Clopidogrel [Plavix] 75 mg PO QDAY #30 tablet 09/13/17 Unknown Rx ISOSORBIDE MONOnitrate [Imdur ER] 30 mg PO QDAY #30 tablet 09/13/17 Unknown Rx Acetaminophen [Acetaminophen TAB] 500 mg PO Q6HR PRN #20 tablet 03/05/18 Unknown Rx HYDROcodone/ACETAMINOPHEN [[place] 1 each PO Q8H PRN #5 tablet 03/05/18 Unknown Rx 5-325 Tablet] ALBUTEROL Inhaler(NF) [VENTOLIN 1 puff IH Q4-6H PRN #1 inha 07/25/18 Unknown Rx Inhaler(NF)] Dextroamphetamine Sulfate [Zenzedi] 20 mg PO Q4H #14 tablet 07/25/18 Unknown Rx Fluticasone [Flonase] 1 spray NS QDAY #1 bottle 07/25/18 Unknown Rx Allergies Allergy/AdvReac Type Severity Reaction Status Date / Time No Known Allergies Allergy Verified 07/12/17 14:18 ED Review of Systems ROS: Stated complaint: HIGH GLUCOSE Other details as noted in HPI Comment: All other systems reviewed and negative Constitutional: denies: chills, fever Respiratory: denies: cough, shortness of breath, SOB with exertion, SOB at rest Cardiovascular: denies: chest pain, palpitations Gastrointestinal: denies: abdominal pain, nausea, vomiting Musculoskeletal: denies: back pain Neurological: weakness. denies: headache, numbness, paresthesias, confusion, abnormal gait ED Past Medical Hx - Past Medical History Previous Medical History?: Yes Hx Hypertension: Yes (10yrs ago) Hx Heart Attack/AMI: No Hx Congestive Heart Failure: No Hx Diabetes: Yes (pre-diabetic) Hx GERD: Yes Hx Liver Disease: No Hx Renal Disease: No Hx Arthritis: Yes (spine) Hx Seizures: Yes (08/27/17) Hx Kidney Stones: Yes (08/2017) Hx Asthma: No Hx COPD: No Hx HIV: No Additional medical history: pancreatic ca taking chemo currently 08/2020 - Surgical History Past Surgical History?: Yes Hx Coronary Stent: No Hx Pacemaker: No Additional Surgical History: hand - Social History Smoking Status: Never Smoker Substance Use Type: None - Medications Home Medications: Home Medications Medication Instructions Recorded Confirmed Last Taken Type Aspirin [Lo-Dose Aspirin EC] 81 mg PO DAILY 07/12/17 09/12/17 09/08/17 History AtorvaSTATin 10 mg PO QHS 07/12/17 09/12/17 09/11/17 History Cholecalciferol (Vitamin D3) 50,000 unit PO QWEEK 07/12/17 09/12/17 09/06/17 History [Vitamin D3 50,000UNIT CAP] Lisinopril [Zestril] 20 mg PO DAILY 07/12/17 09/12/17 09/12/17 05:30 History Metoprolol [Lopressor TAB] 25 mg PO QDAY 07/12/17 09/12/17 09/12/17 05:30 History Famotidine [Pepcid] 10 mg PO BID #60 tablet 08/28/17 09/12/17 09/10/17 Rx Tamsulosin HCl [Flomax] 0.4 mg PO DAILY #10 cap.er.24h 08/28/17 09/12/17 09/11/17 Rx Aspirin EC [Ecotrin] 325 mg PO QDAY 09/12/17 09/12/17 09/12/17 05:30 History Clopidogrel [Plavix] 75 mg PO QDAY #30 tablet 09/13/17 Unknown Rx ISOSORBIDE MONOnitrate [Imdur ER] 30 mg PO QDAY #30 tablet 09/13/17 Unknown Rx Acetaminophen [Acetaminophen TAB] 500 mg PO Q6HR PRN #20 tablet 03/05/18 Unknown Rx HYDROcodone/ACETAMINOPHEN [[place] 1 each PO Q8H PRN #5 tablet 03/05/18 Unknown Rx 5-325 Tablet] ALBUTEROL Inhaler(NF) [VENTOLIN 1 puff IH Q4-6H PRN #1 inha 07/25/18 Unknown Rx Inhaler(NF)] Dextroamphetamine Sulfate [Zenzedi] 20 mg PO Q4H #14 tablet 07/25/18 Unknown Rx Fluticasone [Flonase] 1 spray NS QDAY #1 bottle 07/25/18 Unknown Rx ED Physical Exam - General Limitations: No Limitations General appearance: alert, in no apparent distress - Head Head exam: Present: atraumatic, normocephalic, normal inspection - Eye Eye exam: Present: normal appearance - ENT ENT exam: Present: mucous membranes dry - Neck Neck exam: Present: normal inspection. Absent: tenderness, meningismus - Respiratory Respiratory exam: Present: normal lung sounds bilaterally - Cardiovascular Cardiovascular Exam: Present: regular rate, normal rhythm, normal heart sounds - GI/Abdominal GI/Abdominal exam: Present: soft, normal bowel sounds. Absent: distended, tenderness, guarding, rebound, rigid, organomegaly, mass, bruit, pulsatile mass, hernia - Extremities Exam Extremities exam: Present: normal inspection, full ROM, normal capillary refill. Absent: tenderness, pedal edema, calf tenderness - Back Exam Back exam: Present: normal inspection, full ROM. Absent: CVA tenderness (R), CVA tenderness (L) - Neurological Exam Neurological exam: Present: alert, oriented X3, CN II-XII intact, normal gait, reflexes normal - Psychiatric Psychiatric exam: Present: normal mood - Skin Skin exam: Present: warm, intact, normal color ED Course Vital Signs 08/19/20 08/19/20 00:13 03:13 Temperature 97.4 F L Pulse Rate 87 81 Respiratory 17 Rate Blood Pressure 141/83 O2 Sat by Pulse 97 Oximetry ED Medical Decision Making - Lab Data Result diagrams: 08/19/20 01:00 08/19/20 01:00 - EKG Data -: EKG Interpreted by Pa EKG shows normal: sinus rhythm Rate: normal - EKG Data Interpretation: no acute changes - Radiology Data Radiology results: report reviewed - Medical Decision Making Patient is 75-year-old male with history of pancreatic cancer on chemotherapy now. Patient presented to the ER after he received a call from his doctor stating that his blood sugar was high. Patient found to have a blood sugar of 706. Patient is complaining of generalized weakness. Patient denied any nausea or vomiting. No fever or chills. Patient also denied any abdominal pain or diarrhea. No chest pain or shortness of breath. Labs reviewed and showed a blood sugar of 706. Anion gap of 20. Patient star maddison normal saline and insulin. Chest x-ray is unremarkable. EKG showed no ST elevation or depression. I discussed the patient with Dr. Gastelum, he agreed to admit the patient to medical service for further management. Critical Care Time: Yes Critical care time in (mins) excluding proc time.: 30 Critical care attestation.: If time is entered above; I have spent that time in minutes in the direct care of this critically ill patient, excluding procedure time. ED Disposition Clinical Impression: Acute hyperglycemia, Generalized weakness Disposition: - OP ADMIT IP TO THIS HOSP Is pt being admited?: Yes Condition: Stable Referrals: RADHA VEGA DO [Primary Care Provider] - 3-5 Days
[2020-08-19] MEDS ORDERED: INSULIN LISPRO 100 UNIT/ML SUB-Q ONE ×2 (02:45→12:00)
[2020-08-19] MEDS ORDERED: INSULIN REGULAR, HUMAN 100 UNITS/1 ML ONE (02:45)
--- NOTE | 2020-08-19 03:16 | XRay Report ---
CHEST 1 VIEW, 08/19/2020 2:59 AM CLINICAL INFORMATION/INDICATION: Weakness. Hyperglycemia. COMPARISON: Chest radiograph, 07/24/2018 FINDINGS: SUPPORT DEVICES: There is a right-sided Port-A-Cath with tip projecting in expected position overlyin g the distal SVC. HEART: The cardiac silhouette is normal in size. LUNGS/PLEURA: The lungs are clear of focal airspace disease or significant pleural effusion ADDITIONAL FINDINGS: No additional acute findings. IMPRESSION: 1. No evidence of acute cardiopulmonary process. Signer Name: Cristina Wu MD Signed: 08/19/2020 3:11 AM Workstation Name: [id number]
[2020-08-19 03:53] LABS: Bilirubin,Urine NEG (Negative); Blood,Urine NEG (Negative); Color,Urine Colorless (Yellow); Protein,Urine <15 mg/dL mg/dL (Negative); Urobilinogen,Urine < 2.0 mg/dL (<2.0); WBC,Urine < 1.0 /HPF (0.0-6.0)
[2020-08-19] MEDS ORDERED: MAGNESIUM HYDROXIDE (MOM) ORAL LIQD UDC PO PRN (05:08)
[2020-08-19] MEDS ORDERED: MORPHINE 2 MG/1 ML INJ IV PRN (05:08)
[2020-08-19] MEDS ORDERED: ACETAMINOPHEN 325 MG TAB PO PRN (05:08)
[2020-08-19] MEDS ORDERED: DEXTROSE 50% IN WATER (25GM) 50 ML SYRINGE IV PRN (05:08)
[2020-08-19] MEDS ORDERED: ONDANSETRON 4 MG/2 ML INJ IV PRN (05:08)
[2020-08-19] MEDS ORDERED: SODIUM CHLORIDE 0.9% 1000 ML 1,000 ML IV SCH (05:15)
--- NOTE | 2020-08-19 05:17 | History and Physical Report ---
History of Present Illness Date of examination: 08/19/20 Date of admission: 08/19/20 03:28 Chief complaint: Elevated Blood Glucose History of present illness: 75-year-old -Greek male with known history of pancreatic cancer and currently on chemotherapy was referred to the emergency room today for elevated blood glucose. Patient had gone to the clinic about a week ago to have some blood work. He was later called at home today because his blood sugar was elevated and was therefore referred to the emergency room for evaluation. He had complained of generalized weakness but denies any nausea vomiting, no diarrhea, no chest pain or shortness of breath. He has been told in the past that he was borderline diabetic. He is not on any medication for diabetes mellitus. Patient indicates that he has also been on steroid lately and had his chemotherapy today. Work-up in the emergency room today reveals blood glucose of 706. Patient has been started on IV fluid and insulin injection. Patient being admitted for hyperglycemia. Past History Past Medical History: arthritis, diabetes, GERD, hypertension, hyperlipidemia, seizures, other (Pancreatic Ca. on Chemo.,Kidney Stones,) Past Surgical History: Other (Hand surgery) Social history: no significant social history Family history: no significant family history Medications and Allergies Allergies Allergy/AdvReac Type Severity Reaction Status Date / Time No Known Allergies Allergy Verified 07/12/17 14:18 Home Medications Medication Instructions Recorded Confirmed Last Taken Type Aspirin [Lo-Dose Aspirin EC] 81 mg PO DAILY 07/12/17 08/19/20 09/08/17 History AtorvaSTATin 10 mg PO QHS 07/12/17 08/19/20 09/11/17 History Cholecalciferol (Vitamin D3) 50,000 unit PO QWEEK 07/12/17 08/19/20 09/06/17 History [Vitamin D3 50,000UNIT CAP] Lisinopril [Zestril] 20 mg PO DAILY 07/12/17 08/19/20 09/12/17 05:30 History Metoprolol [Lopressor TAB] 25 mg PO QDAY 07/12/17 08/19/20 09/12/17 05:30 History Famotidine [Pepcid] 10 mg PO BID #60 tablet 08/28/17 08/19/20 09/10/17 Rx Tamsulosin HCl [Flomax] 0.4 mg PO DAILY #10 cap.er.24h 08/28/17 08/19/20 09/11/17 Rx Aspirin EC [Ecotrin] 325 mg PO QDAY 09/12/17 08/19/20 09/12/17 05:30 History Clopidogrel [Plavix] 75 mg PO QDAY #30 tablet 09/13/17 08/19/20 Unknown Rx ISOSORBIDE MONOnitrate [Imdur ER] 30 mg PO QDAY #30 tablet 09/13/17 08/19/20 Unknown Rx Acetaminophen [Acetaminophen TAB] 500 mg PO Q6HR PRN #20 tablet 03/05/1808/05 Unknown Rx HYDROcodone/ACETAMINOPHEN [[place] 1 each PO Q8H PRN #5 tablet 03/05/18 08/19/20 Unknown Rx 5-325 Tablet] ALBUTEROL Inhaler(NF) [VENTOLIN 1 puff IH Q4-6H PRN #1 inha 07/25/18 08/19/20 Unknown Rx Inhaler(NF)] Dextroamphetamine Sulfate [Zenzedi] 20 mg PO Q4H #14 tablet 07/25/18 08/19/20 Unknown Rx Fluticasone [Flonase] 1 spray NS QDAY #1 bottle 07/25/18 08/19/20 Unknown Rx Review of Systems Constitutional: no fever, no chills Ears, nose, mouth and throat: no nasal congestion, no sore throat Cardiovascular: no chest pain, no palpitations Respiratory: no cough, no shortness of breath Gastrointestinal: no abdominal pain, no nausea, no vomiting, no diarrhea Genitourinary Male: no dysuria, no hematuria, no flank pain Musculoskeletal: no neck pain, no low back pain Integumentary: no rash, no pruritis Neurological: no headaches, no confusion Psychiatric: no anxiety, no depression Exam - Constitutional Vitals: Temp Pulse Resp BP Pulse Ox 97.4 F L 82 18 153/87 98 08/19/20 00:13 08/19/20 04:58 08/19/20 04:58 08/19/20 04:58 08/19/20 04:58 General appearance: Present: no acute distress, well-nourished - EENT Eyes: Present: PERRL, EOM intact. Absent: scleral icterus ENT: hearing intact, clear oral mucosa, dentition normal - Neck Neck: Present: supple, normal ROM - Respiratory Respiratory effort: normal Respiratory: bilateral: CTA - Cardiovascular Rhythm: regular Heart Sounds: Present: S1 & S2. Absent: gallop, systolic murmur, diastolic mu rmur, rub - Extremities Extremities: no ischemia, pulses intact, pulses symmetrical, No edema, normal temperature, normal color, Full ROM Peripheral Pulses: within normal limits - Abdominal General gastrointestinal: Present: soft, non-tender, non-distended, normal bowel sounds. Absent: mass - Integumentary Integumentary: Present: clear, warm, dry. Absent: rash - Musculoskeletal Musculoskeletal: strength equal bilaterally - Psychiatric Psychiatric: appropriate mood/affect, intact judgment & insight, memory intact, cooperative - Neurologic Neurologic: CNII-XII intact, no focal deficits, moves all extremities HEART Score - HEART Score Troponin: Troponin T < 0.010 ng/mL (0.00-0.029) 08/19/20 01:00 Results - Labs CBC & Chem 7: 08/19/20 01:00 08/19/20 01:00 Labs: Abnormal lab results 08/19/20 08/19/20 08/19/20 Range/Units 00:16 01:00 01:00 RBC 3.38 L (3.65-5.03) M/mm3 Hgb 11.4 L (11.8-15.2) gm/dl Hct 33.9 L (35.5-45.6) % MCV 100 H (84-94) fl MCH 34 H (28-32) pg RDW 16.9 H (13.2-15.2) % Sodium 129 L (137-145) mmol/L Potassium 5.3 H (3.6-5.0) mmol/L Chloride 92.5 L (98-107) mmol/L BUN 26 H (9-20) mg/dL Creatinine 1.5 H (0.8-1.3) mg/dL Glucose 706 H* (75-100) mg/dL POC Glucose > 600 H (70-105) mg/dL Alkaline Phosphatase 220 H (35-129) units/L 08/19/20 Range/Units 03:54 RBC (3.65-5.03) M/mm3 Hgb (11.8-15.2) gm/dl Hct (35.5-45.6) % MCV (84-94) fl MCH (28-32) pg RDW (13.2-15.2) % Sodium (137-145) mmol/L Potassium (3.6-5.0) mmol/L Chloride (98-107) mmol/L BUN (9-20) mg/dL Creatinine (0.8-1.3) mg/dL Glucose (75-100) mg/dL POC Glucose 485 H (70-105) mg/dL Alkaline Phosphatase (35-129) units/L Assessment and Plan - Patient Problems (1) Acute hyperglycemia Current Visit: Yes Status: Acute Plan to address problem: Possibly secondary to steroid use. Will monitor Accu-Cheks and place patient on IV fluid. We will also check hemoglobin A1c. (2) Generalized weakness Current Visit: Yes Status: Acute Plan to address problem: Patient has known history of pancreatic cancer. He has been on steroid and chemotherapy lately. (3) HTN (hypertension) Current Visit: No Status: Acute Plan to address problem: We will resume routine home medications and monitor vital signs closely. (4) DVT prophylaxis Current Visit: No Status: Acute Plan to address problem: Patient placed on subcutaneous Lovenox. (5) Full code status Current Visit: Yes Status: Acute
[2020-08-19 05:36] LABS: Total Cells Counted 100
[2020-08-19 05:37] LABS: Anisocytosis Few; Ovalocytes Rare; Schistocytes Few; Tear Drop Cells Rare
[2020-08-19 05:38] LABS: Platelet Estimate Consistent w Auto
[2020-08-19] MEDS ORDERED: SODIUM CHLORIDE 0.45% 1000 ML 1,000 ML IV ONE (07:21)
[2020-08-19] MEDS: INSULIN LISPRO 100 UNIT/ML VIAL 3 mL SUB-Q SCH ×3 (08:35→17:10)
[2020-08-19 09:34] VITALS: BP 152/89
--- NOTE | 2020-08-19 16:02 | Event Note ---
Date: 08/19/20 Brief progress note Patient seen and examined This is the second IMS visit of the day She offers no specific complaints Apparently received chemotherapy for pancreatic cancer yesterday, had blood work and was told to go to ED because of very high blood sugars Patient states that he has borderline diabetes and does not take any medications A1c is 9.6 Accu-Cheks improving Lab results reviewed
[2020-08-19] MEDS ORDERED: ENOXAPARIN 40 MG/0.4 ML INJ SUB-Q SCH (22:00)
--- NOTE | 2020-08-20 19:24 | Discharge Summary ---
Providers - Providers Date of Admission: 08/19/20 03:28 Date of discharge: 08/19/20 Attending physician: HILLARY ENGLAND 08/19/20 05:08 Consult to Dietitian/Nutrition [CONS] Routine Physician Instructions: Reason For Exam: Reason for Consult: Diet education Primary care physician: RADHA VEGA Hospitalization Condition: Stable Hospital course: 75-year-old -Af[place] male with known history of pancreatic cancer and currently on chemotherapy was referred to the emergency room today for elevated blood glucose. Patient had gone to the clinic about a week ago to have some blood work. He was later called at home today because his blood sugar was elevated and was therefore referred to the emergency room for evaluation. He had complained of generalized weakness but denies any nausea vomiting, no diarrhea, no chest pain or shortness of breath. He has been told in the past that he was borderline diabetic. He is not on any medication for diabetes mellitus. Patient indicates that he has also been on steroid lately and had his chemotherapy today. Work-up in the emergency room today reveals blood glucose of 706. Patient apparently signed out AMA. His blood sugar at discharge was 250 Disposition: DC-07 LEFT AGAINST MED ADVICE - Discharge Diagnoses (1) Acute hyperglycemia Status: Acute Comment: patient signed out AMA He is not on any home medications [employer] (2) HTN (hypertension) Status: Chronic Qualifiers: Hypertension type: essential hypertension Qualified Code(s): I10 - Essential (primary) hypertension Core Measure Documentation - Palliative Care Palliative Care/ Comfort Measures: Not Applicable - Core Measures Any of the following diagnoses?: none Exam - Physical Exam Narrative exam: no physical exam was performed as he signed out AMA - Constitutional Vitals: Temp Pulse Resp BP Pulse Ox 97.7 F 77 20 152/89 100 08/19/20 17:53 08/19/20 17:53 08/19/20 17:53 08/19/20 17:53 08/19/20 17:53 Plan Activity: other (signed out AMA) Diet: regular, low fat, low cholesterol, low salt, diabetic Follow up with: RADHA VEGA DO [Primary Care Provider] - 3-5 Days Forms: AMA Form
== END 2020-08-19 21:03 | disposition left against medical advice (07) | DRG 639 ==
LOC: ED 22:53 → 3A 08-19 03:28
PROVIDERS: ADMIT Internal Medicine Geriatric Medicine; ATTEND Internal Medicine
DX: E11.65 Type 2 diabetes mellitus with hyperglycemia (principal); R53.1 Weakness; I10 Essential (primary) hypertension; K21.9 Gastro-esophageal reflux disease without esophagitis; R56.9 Unspecified convulsions; E78.5 Hyperlipidemia, unspecified; M19.90 Unspecified osteoarthritis, unspecified site; Z53.29 Procedure and treatment not carried out because of patient's decision for other reasons; Z87.442 Personal history of urinary calculi; Z85.07 Personal history of malignant neoplasm of pancreas; Z92.21 Personal history of antineoplastic chemotherapy
CPT/HCPCS: 36415; 71045; 80053; 81001; 82805; 82962; 83036; 84484; 85007; 85025; 93005; G0378; J1815; J7030

== ENCOUNTER 2021-07-20 19:09 | Emergency (ER) | payer MEDICARE ==
[2021-07-20] MEDS ORDERED: SODIUM CHLORIDE 0.9% 1000 ML 1,000 ML IV ONE ×2 (19:22→23:45)
--- NOTE | 2021-07-20 19:22 | Emergency Department Report ---
ED Abdominal Pain HPI - General Chief Complaint: GI Bleed Time Seen by Provider: 07/20/21 19:21 Source: EMS Mode of arrival: Stretcher Limitations: No Limitations - History of Present Illness Initial Comments: Patient presents by EMS secondary to GI upset. They report that he had had hematemesis. Patient states that he just feels dizzy and lightheaded. He has felt dizzy and lightheaded when he gets up. He denies having any abdominal pain. Has no back pain. He has been vomiting here. He states that he does not think he is vomited any blood. He has not had melena or diarrhea. Patient has no fevers or chills per there is no cough or congestion. He states that he just feels dizzy anytime he sits up. As long as he is not sitting up, he does not feel dizzy. EMS reports that the patient was clammy and diaphoretic. They report his blood pressure was low. They have given IV fluids. They have also administered Zofran. - Related Data Home Medications Medication Instructions Recorded Confirmed Last Taken Aspirin [Lo-Dose Aspirin EC] 81 mg PO DAILY 07/12/17 08/19/20 09/08/17 AtorvaSTATin 10 mg PO QHS 07/12/17 08/19/20 09/11/17 Cholecalciferol (Vitamin D3) 50,000 unit PO QWEEK 07/12/17 08/19/20 09/06/17 [Vitamin D3 50,000UNIT CAP] Lisinopril [Zestril] 20 mg PO DAILY 07/12/17 08/19/20 09/12/17 05:30 Metoprolol [Lopressor TAB] 25 mg PO QDAY 07/12/17 08/19/20 09/12/17 05:30 Aspirin EC [Ecotrin] 325 mg PO QDAY 09/12/17 08/19/20 09/12/17 05:30 Previous Rx's Medication Instructions Recorded Last Taken Type Famotidine [Pepcid] 10 mg PO BID #60 tablet 08/28/17 09/10/17 Rx Tamsulosin HCl [Flomax] 0.4 mg PO DAILY #10 cap.er.24h 08/28/17 09/11/17 Rx Clopidogrel [Plavix] 75 mg PO QDAY #30 tablet 09/13/17 Unknown Rx ISOSORBIDE MONOnitrate [Imdur ER] 30 mg PO QDAY #30 tablet 09/13/17 Unknown Rx Acetaminophen [Acetaminophen TAB] 500 mg PO Q6HR PRN #20 tablet 03/05/18 Unknown Rx HYDROcodone/ACETAMINOPHEN [[place] 1 each PO Q8H PRN #5 tablet 03/05/18 Unknown Rx 5-325 Tablet] ALBUTEROL Inhaler(NF) [VENTOLIN 1 puff IH Q4-6H PRN #1 inha 07/25/18 Unknown Rx Inhaler(NF)] Dextroamphetamine Sulfate [Zenzedi] 20 mg PO Q4H #14 tablet 07/25/18 Unknown Rx Fluticasone [Flonase] 1 spray NS QDAY #1 bottle 07/25/18 Unknown Rx Ondansetron [Zofran ODT TAB] 8 mg PO Q8HR PRN #20 tab.rapdis 07/20/21 Unknown Rx Allergies Allergy/AdvReac Type Severity Reaction Status Date / Time No Known Allergies Allergy Verified 07/12/17 14:18 ED Review of Systems ROS: Stated complaint: Other details as noted in HPI ED Past Medical Hx - Past Medical History Hx Hypertension: Yes (10yrs ago) Hx Heart Attack/AMI: No Hx Congestive Heart Failure: No Hx Diabetes: Yes (pre-diabetic) Hx GERD: Yes Hx Liver Disease: No Hx Renal Disease: No Hx Arthritis: Yes (spine) Hx Seizures: Yes (08/27/17) Hx Kidney Stones: Yes (08/2017) Hx Asthma: No Hx COPD: No Hx HIV: No Additional medical history: pancreatic ca taking chemo currently 08/2020 - Surgical History Hx Coronary Stent: No Hx Pacemaker: No Additional Surgical History: hand - Social History Smoking Status: Unknown if ever smoked Substance Use Type: None - Medications Home Medications: Home Medications Medication Instructions Recorded Confirmed Last Taken Type Aspirin [Lo-Dose Aspirin EC] 81 mg PO DAILY 07/12/17 08/19/20 09/08/17 History AtorvaSTATin 10 mg PO QHS 07/12/17 08/19/20 09/11/17 History Cholecalciferol (Vitamin D3) 50,000 unit PO QWEEK 07/12/17 08/19/20 09/06/17 History [Vitamin D3 50,000UNIT CAP] Lisinopril [Zestril] 20 mg PO DAILY 07/12/17 08/19/20 09/12/17 05:30 History Metoprolol [Lopressor TAB] 25 mg PO QDAY 07/12/17 08/19/20 09/12/17 05:30 History Famotidine [Pepcid] 10 mg PO BID #60 tablet 08/28/17 08/19/20 09/10/17 Rx Tamsulosin HCl [Flomax] 0.4 mg PO DAILY #10 cap.er.24h 08/28/17 08/19/20 09/11/17 Rx Aspirin EC [Ecotrin] 325 mg PO QDAY 09/12/17 08/19/20 09/12/17 05:30 History Clopidogrel [Plavix] 75 mg PO QDAY #30 tablet 09/13/17 08/19/20 Unknown Rx ISOSORBIDE MONOnitrate [Imdur ER] 30 mg PO QDAY #30 tablet 09/13/17 08/19/20 Unknown Rx Acetaminophen [Acetaminophen TAB] 500 mg PO Q6HR PRN #20 tablet 03/05/18 08/19/20 Unknown Rx HYDROcodone/ACETAMINOPHEN [[place] 1 each PO Q8H PRN #5 tablet 03/05/18 08/19/20 Unknown Rx 5-325 Tablet] ALBUTEROL Inhaler(NF) [VENTOLIN 1 puff IH Q4-6H PRN #1 inha 07/25/18 08/19/20 Unknown Rx Inhaler(NF)] Dextroamphetamine Sulfate [Zenzedi] 20 mg PO Q4H #14 tablet 07/25/18 08/19/20 Unknown Rx Fluticasone [Flonase] 1 spray NS QDAY #1 bottle 07/25/18 08/19/20 Unknown Rx Ondansetron [Zofran ODT TAB] 8 mg PO Q8HR PRN #20 tab.rapdis 07/20/21 Unknown Rx ED Physical Exam - General Limitations: No Limitations ED Course Vital Signs 07/20/21 07/20/21 07/20/21 19:16 20:53 21:00 Temperature 97.2 F L Pulse Rate 109 H 101 H Respiratory 14 19 Rate Blood Pressure 125/75 112/66 133/79 O2 Sat by Pulse 98 100 Oximetry 07/20/21 07/20/21 07/20/21 21:15 21:30 21:46 Temperature Pulse Rate 103 H 105 H 103 H Respiratory 16 16 16 Rate Blood Pressure 137/74 127/70 137/83 O2 Sat by Pulse 100 100 100 Oximetry 07/20/21 07/20/21 07/20/21 22:00 22:15 22:30 Temperature Pulse Rate 103 H 106 H 117 H Respiratory 12 10 L 15 Rate Blood Pressure 140/80 133/86 122/73 O2 Sat by Pulse 100 100 Oximetry 07/20/21 22:45 Temperature Pulse Rate 108 H Respiratory 17 Rate Blood Pressure 131/86 O2 Sat by Pulse 100 Oximetry - Reevaluation(s) Reevaluation #1: 07/20/21 19:21 EMS was met. IV labs ordered. Old records reviewed. Reevaluation #2: 07/20/21 23:29 Labs are noted. Patient did not get dizzy after ambulation. He felt better. There has been no vomiting. There was certainly no hematemesis or coffee-ground emesis. He had not reported melenic stool. Again, he was not convinced that he had thrown up any blood. At this time, patient was discharged. He does not have symptoms that suggest hepatitis or pancreatitis. He is not anemic. There is no distention or tympany to suggest bowel obstruction. ED Medical Decision Making - Lab Data Result diagrams: 07/20/21 19:35 07/20/21 19:35 Critical care attestation.: If time is entered above; I have spent that time in minutes in the direct care of this critically ill patient, excluding procedure time. ED Disposition Clinical Impression: Lightheaded Nausea & vomiting Qualifiers: Vomiting type: unspecified Vomiting Intractability: non-intractable Qualified Code(s): R11.2 - Nausea with vomiting, unspecified Disposition: 01 HOME / SELF CARE / HOMELESS Is pt being admited?: No Condition: Stable Instructions: Nausea and Vomiting, Adult, Dizziness, [id number] Additional Instructions: Have a bland diet. Drink plenty water. Return for problems. Follow-up with your regular physician for recheck and further management. Continue home medication. Prescriptions: Ondansetron [Zofran ODT TAB] 8 mg PO Q8HR PRN #20 tab.rapdis PRN Reason: Nausea Referrals: PRIMARY CARE,MD [Primary Care Provider] - 3-5 Days Forms: Accompanied Note
[2021-07-20 20:01] LABS: Hematocrit 29.8 % (35.5-45.6); Hemoglobin 9.2 gm/dl (11.8-15.2); Mean Corpuscular HGB Conc 31 % (32-34); Mean Corpuscular Volume 89 fl (84-94); Platelet Count 310 K/mm3 (140-440); Red Blood Count 3.34 M/mm3 (3.65-5.03); Red Cell Distribution Width 18.6 % (13.2-15.2)
[2021-07-20 20:09] LABS: BUN/Creatinine Ratio 21; Blood Urea Nitrogen 23 mg/dL (9-20); Calcium 8.4 mg/dL (8.4-10.2); Hemolysis Index 28
[2021-07-21 01:09] VITALS: BP 118/50
== END 2021-07-21 01:08 | disposition home or self-care (01) ==
LOC: ED 19:09
DX: R42 Dizziness and giddiness (principal); R11.2 Nausea with vomiting, unspecified; I10 Essential (primary) hypertension; E11.9 Type 2 diabetes mellitus without complications; K21.9 Gastro-esophageal reflux disease without esophagitis; M19.90 Unspecified osteoarthritis, unspecified site; Z87.442 Personal history of urinary calculi; Z79.82 Long term (current) use of aspirin; Z79.899 Other long term (current) drug therapy; Z86.69 Personal history of other diseases of the nervous system and sense organs
CPT/HCPCS: 36415; 80048; 85027; 96360; 99284; J7030; Q0162